=== PATIENT | female | born 1970 | race Asian ===

== ENCOUNTER → 2022-06-25 09:55 | Day surgery (SDC) | payer BC, OTHER, SELFPAY | PROVIDERS: Visit Provider Surgery | DX: Z53.9 Procedure and treatment not carried out, unspecified reason (principal) | CPT/HCPCS: 87624 ==

== ENCOUNTER 2022-09-24 09:13 | Outpatient (CLI) | payer MEDICAID, SELFPAY | END 2022-09-24 09:15 | disposition home or self-care (01) | LOC: APT 09:13 | PROVIDERS: Visit Provider Physical Therapist | DX: F80.89 Other developmental disorders of speech and language (principal) | CPT/HCPCS: 95992; 97110 ==